=== PATIENT | male | born 1995 | race Caucasian/White ===

== ENCOUNTER 2023-08-30 09:01 | Outpatient (AMB) | payer BC, SELFPAY ==
--- NOTE | 2023-08-30 09:02 | AM.OFFWIN_ITS ---
Intake Vital Signs 08/30/23 09:03 Height 5 ft 6 in Weight 77.111 kg BMI 27.4 BP 122/78 Blood Pressure Location Rt brachial Position Sitting Pulse 70 Pulse Source Pulse Oximeter Temp 97.4 F Temp Source Temporal Artery Scan Pulse Oximetry (%) 97 Oxygen Delivery Method Room Air Intake Visit Reasons: EP cough Intake Note: Patient here for possible bilat ear infection. Patient Tobacco Use Status: Never used Tobacco Allergies No Known Allergies [No Known Allergies*] Allergy (Unverified 08/30/23 09:04) Bees Allergy (Unknown, Uncoded 08/30/23 09:04) Anaphylaxis Do you need a note to return to daycare/school/sports/work: No HPI HPI Comments History of Present Illness Details 28-year-old male presents for over 1 wee k of bilateral ear pain. Patient states that he gets recurrent ear infections, and requires 2 different antibiotics. PFSH Patient Tobacco Use Status: Never used Tobacco Review of Systems Const All systems reviewed & are unremarkable except as noted in HPI and below Physical Exam Vital Signs: Last Vital Signs Temp 97.4 F 08/30/23 09:03 Pulse 70 08/30/23 09:03 BP 122/78 08/30/23 09:03 Pulse Ox 97 08/30/23 09:03 Oxygen Delivery Method Room Air 08/30/23 09:03 BMI result Body Mass Index 27.4 VSS Const General: healthy appearing Orientation/consciousness: oriented to person, oriented to place and oriented to time Limitations: no limitations HEENT Ears: TM abnormal bulging, wth effusion, erythematous and scarred Face and sinus: Yes normal facial exam Mouth: Normal oral and palatal mucosa present Neck Neck: Yes normal visual inspection, Yes full ROM, Yes no lymphadenopathy, Yes no meningeal signs and Yes trachea midline Resp Effort & Inspection: normal respiratory effort and able to speak in complete sentences Neuro General: oriented to person, oriented to place, oriented to time and no meningeal signs Assessment & Plan Assessment & Plan (1) Otitis media: Code(s): H66.90 - Otitis media, unspecified, unspecified ear Plan: 28-year-old male presents with bilateral ear infections. States that he gets recurrent ear infections and has had this pain for almost a week. He reports the requires 2 different antibiotics usually Augmentin and doxycycline, has had myringotomy tubes in the past. Does not report any loss hearing or purulent drainage from the ears. Patient has significant bilateral otitis media, encouraged him to follow-up with his primary care provider for ENT referral. I do feel that this patient is a good historian, and will respect his past medical history of 2 antibiotics for this presentation. Patient verbalizes understanding of and agrees to plan of care discharge home. Verbalizes understanding of signs and symptoms indicating need for emergent intervention. Orders: Orders SARS-CoV2/FLU/RSV Today R09.89 - Other specified symptoms and signs involving the circulatory and respiratory systems Medications: New amoxicillin-pot clavulanate 875-125 mg 1 tab PO Q12H 10 days 20 tabs 0RF doxycycline monohydrate 100 mg PO BID 10 days 20 caps 0RF Patient Instructions: You were evaluated for bilateral ear pain. You have bilateral otitis media. Please follow-up with ENT. Call your primary care physician for an ENT referral. Take Augmentin 875 mg every 12 hours for the next 10 days. Take doxycycline 100 mg every 12 hours for the next 10 days. Alternate Tylenol 650 mg every 6 hours and Motrin 600 mg every 6 hours as needed for pain and fever management. Consider taking these medications 3 hours apart so you have pain and fever management every 3 hours. Write down what time you take these medications to prevent accidental overdose. Motrin is the same medication as Advil and ibuprofen. Tylenol is the same medication as acetaminophen. Follow-up with primary care provider as needed. Return to urgent care or emergency department for any new, concerning, or worsening symptoms. Coding Level of Care Code Est Pt Level 3 (09770) Diagnoses Otitis media H66.90
[2023-08-30 09:03] VITALS: BP 122/78; PULSE 70; TEMP 36.3; O2SAT 97; BMI 27.4
== END 2023-08-30 09:33 | disposition home or self-care (01) ==
PROVIDERS: PCP Internal Medicine; Visit Provider Nurse Practitioner Family
DX: H66.90 Otitis media, unspecified, unspecified ear (principal)
CPT/HCPCS: 99213